=== PATIENT | female | born 1940 | race Native Hawaiian/Other Pacific Islander ===

== ENCOUNTER 2022-02-04 20:12 | Emergency (ER) | payer OTHER ==
[~2022-02-04] VITALS: Ht 154.9 cm; Wt 117.0 kg
[2022-02-04 20:12] VITALS: BP 147/63; TEMP 98.4
[2022-02-04 20:53] LABS: PLATELET COUNT 165 K/uL (152-353)
[2022-02-04 21:01] LABS: POTASSIUM 3.7 mmol/L (3.6-5.2)
[2022-02-05] MEDS ORDERED: FLUOXETINE40 MG PO (09:37)
[2022-02-05] MEDS ORDERED: ASPIRIN 81 LOW81 MG PO (09:38)
[2022-02-05] MEDS ORDERED: ACIDOPHILU6 PO (09:39)
[2022-02-05] MEDS ORDERED: SPIRIVA RE1.25 MCG/A INH (09:47)
[2022-02-05] MEDS ORDERED: VALSARTAN160 MG PO (09:50)
[2022-02-05] MEDS ORDERED: VITAMIN D325 MCG PO (09:50)
[2022-02-05] MEDS ORDERED: PROMOD PO (09:52)
[2022-02-05] MEDS ORDERED: FLUTICASON50 MCG/AC1 NAS (09:54)
[2022-02-05] MEDS ORDERED: TRESIBA FL100 UNIT/M SC (09:55)
[2022-02-05] MEDS ORDERED: RISP2TAB2 PO (10:07)
[2022-02-05] MEDS ORDERED: RISPERDAL3 MG PO (10:08)
[2022-02-05] MEDS ORDERED: AZELASTINE HYDR1 SPR NAS (10:10)
[2022-02-05] MEDS ORDERED: DIVALPROEX125 M1 PO (10:11)
[2022-02-05] MEDS ORDERED: OMEPRAZOLE40 MG PO (10:12)
[2022-02-05] MEDS ORDERED: ALPR0.5T24 PO (10:13)
[2022-02-05] MEDS ORDERED: NOVOLOG100 UNIT/M SC (10:14)
[2022-02-05] MEDS ORDERED: ZIPR20IN IM (10:15)
[2022-02-05] MEDS ORDERED: TYLENOL325 MG PO (10:16)
[2022-02-05] MEDS ORDERED: HYDROCODONE BIT1 TA1 PO (10:18)
[2022-02-05] MEDS ORDERED: ONDA4TAB3 PO (10:20)
[2022-02-05] MEDS ORDERED: EC-NAPROSYN375 MG PO (10:21)
[2022-02-05] MEDS ORDERED: NASAL SPRAY EX0.05 % NAS (10:22)
[2022-02-05] MEDS ORDERED: DOCU100C10 PO (10:23)
[2022-02-05] MEDS ORDERED: CALCIUM 600 + D1 TAB PO (10:24)
== END 2022-02-04 22:00 | disposition still patient (30) ==
LOC: ED 20:12
PROVIDERS: Emergency Medicine Emergency Medical Services
DX: R46.89 Other symptoms and signs involving appearance and behavior (principal); F32.9 Major depressive disorder, single episode, unspecified; Z11.52 Encounter for screening for COVID-19; Z04.6 Encounter for general psychiatric examination, requested by authority
CPT/HCPCS: 36415; 80053; 85027; 87635; 93005; 99283; U0003